=== PATIENT | male | born 1950 | race Caucasian/White ===

== ENCOUNTER 2016-10-21 09:27 | Day surgery (SDC) | payer MEDICARE, BC ==
[2016-10-14 08:25] VITALS: BMI 36.6
--- NOTE | 2016-10-20 14:49 | HP ---
DATE OF ADMISSION: 10/21/2016 Alin Junior is a 66-year-old patient seen with symptomatic left elbow olecranon bursitis with an obvious olecranon spur. After having treatment options discussed, he elected to proceed with surgical intervention, including olecranon bursectomy and excision of the symptomatic olecranon spur. Consent was obtained. His past medical history is benign prostatic hypertrophy, hypertension, gastroesophageal reflux disease. Past surgical history is bilateral carpal tunnel release. DAILY MEDICATIONS: 1. Aspirin. 2. Flomax. 3. Metoprolol. 4. Omeprazole. Allergies are none. SOCIAL HISTORY: Patient denies current tobacco use. Physical evaluation of the left elbow: He has an obvious large olecranon bursal swelling, obvious tenderness along the olecranon bursa as well as a palpable olecranon spur. His range of motion is near full. His distal neurovascular exam is intact. Ligaments about the elbow are stable. Radiographs of the left revealed an olecranon spur. IMPRESSION: Left elbow symptomatic olecranon bursitis with a symptomatic olecranon spur. PLAN: Left elbow olecranon bursectomy and excision of olecranon bony spur.
[2016-10-21] MEDS ORDERED: DEXAMETHASONE SOD PHOSPHATE 10 MG/ML 1 ML VIAL IV ONE (09:58)
[2016-10-21] MEDS ORDERED: LACTATED RINGERS 1,000 ML IV SCH (09:58)
[2016-10-21] MEDS ORDERED: HYDROmorphone 1 MG/ML 1 ML SYRINGE IVP PRN (09:58)
[2016-10-21] MEDS ORDERED: ONDANSETRON 4 MG/2 ML VIAL IVP ONE (09:58)
[2016-10-21] MEDS ORDERED: LIDOCAINE 1% 20 ML VIAL (10MG/ML) FOR IV START INTRADERMA ONE (10:08)
[2016-10-21] MEDS ORDERED: ceFAZolin 3 GM in SODIUM CHLORIDE 0.9% 100 ML IVPB STA (10:28)
[2016-10-21] MEDS ORDERED: LIDOCAINE 1% INJ 10MG/ML (20 ML MDV) ONE (11:04)
[2016-10-21] MEDS ORDERED: PROPOFOL 10 MG/ML 20 ML VIAL IV ONE (11:04)
[2016-10-21] MEDS ORDERED: ceFAZolin 1,000 MG VIAL ONE (11:04)
[2016-10-21] MEDS ORDERED: SUCCINYLCHOLINE CHLORIDE 100 MG/5 ML SYR IV ONE (11:04)
[2016-10-21] MEDS ORDERED: SODIUM CHLORIDE 0.9% 100 ML BAG ONE (11:04)
[2016-10-21] MEDS ORDERED: fentaNYL (PF) 50 MCG/ML 2 ML AMP ONE (11:04)
[2016-10-21] MEDS ORDERED: MIDAZOLAM 2 MG/2 ML VIAL ONE (11:04)
[2016-10-21] MEDS ORDERED: BUPIVACAINE (PF) 0.5% 30 ML VIAL SQ ONE ×2 (11:27→11:54)
--- NOTE | 2016-10-21 12:01 | P.OP ---
Date of Procedure: 10/21/16 Preoperative Diagnosis: 1. Left elbow olecranon bursitis 2. Left elbow olecranon spur Postoperative Diagnosis: Same Procedure(s) Performed: 1. Left elbow olecranon bursectomy 2. Left elbow excision of olecranon spur Anesthesia: ÁNGELA Surgeon: Patrice Noonan Hydrography Teacher #1: Nate Sinha Estimated Blood Loss (ml): 10 Pathology: none sent Condition: stable Disposition: PACU Indications for Procedure: 66-year-old patient seen with a symptomatic left elbow olecranon spur as well as recurrent persistent olecranon bursitis. After having options regarding treatment discussed, he elected to proceed with a left elbow olecranon bursectomy as well as excision of the spur. Operative Findings: See description of procedure Description of Procedure: Patient was taken to the operative suite. Patient underwent a general anesthetic by the department of anesthesia. A well-padded tourniquet was placed along the proximal left upper extremity. The left upper extremity was prepped and draped in the normal sterile orthopedic fashion. The patient had received preoperative IV antibiotics. The extremity was elevated and tourniquet insufflated to 250. I made an incision over the area of the olecranon bursa/olecranon tip. Dissection was taken down to the area of the thickened olecranon bursa. I now meticulously debrided all the abnormal looking olecranon bursal tissue performing a essentially complete olecranon bursectomy. I now identified the olecranon spur. I utilized an osteotome to excise this. I then rounded off the edges utilizing a rongeur. There was complete excision of the spur. There was complete excision of any abnormal appearing bursal tissue. The wound was irrigated with normal saline. We had good hemostasis. The subcutaneous soft tissues were approximated with 2-0 Vicryl. The skin was approximated with a running subcuticular 30 strata fix augmented with pernio Dermabond. The subcutaneous soft tissues were infiltrated with analgesic. The tourniquet was released with immediate capillary refill noted of the entire extremity. Sterile dressings were applied followed by loose web bone Masoud bandage. Patient was awakened, transferred to recovery stable condition. Nate HOWE assisted with the procedure.
[2016-10-21 12:21] VITALS: TEMP 97.9
[2016-10-21 13:34] VITALS: RESP 18
[2016-10-21] MEDS ORDERED: HYDROcodone/APAP 7.5-325MG 1 EACH TAB PO ONE (13:46)
[2016-10-21 14:08] VITALS: BP 138/87; PULSE 57
== END 2016-10-21 14:28 | disposition home or self-care (01) ==
LOC: OR 09:27
PROVIDERS: ATTEND Orthopaedic Surgery
DX: M70.22 Olecranon bursitis, left elbow (principal); M77.8 Other enthesopathies, not elsewhere classified; I10 Essential (primary) hypertension; G47.33 Obstructive sleep apnea (adult) (pediatric); N40.0 Benign prostatic hyperplasia without lower urinary tract symptoms; K21.9 Gastro-esophageal reflux disease without esophagitis; E66.01 Morbid (severe) obesity due to excess calories; Z68.36 Body mass index [BMI] 36.0-36.9, adult; Z79.82 Long term (current) use of aspirin; Z79.899 Other long term (current) drug therapy
CPT/HCPCS: 24105; J2250; J1100; J2405; J0690; J2001; J3010; J0330; J2704

== ENCOUNTER → 2019-10-25 | Outpatient (CLI) | payer MEDICARE, OTHER ==
--- NOTE | 2019-10-26 00:07 | CONS ---
CONSULTATION DATE OF SERVICE: 10/25/2019 A 69-year-old gentleman has been evaluated in Sleep Center for possible obstructive sleep apnea-hypopnea syndrome. HISTORY OF PRESENT ILLNESS/SLEEP WAKE EVALUATION: Patient's usual sleep schedule from 11:00 pm to 1:00 am until 730 to 7:45 am. FALLING ASLEEP: Usually no problems with falling asleep. No TV in bedroom. He prefers to sleep on stomach position. DURING SLEEP: He has loud snoring according to his , and witnessed episodes of stopped breathing during sleep. He wakes up from sleep 3 times with dry mouth and once with nocturia. No history of hypnagogical hallucinations, sleep paralysis or cataplexy. DURING THE DAY/SLEEP WAKE EVALUATION: During the day, the patient may take one nap in the afternoon. [place] Sleepiness Scale is 5. PAST MEDICAL HISTORY: Positive for hypertension, hyperlipidemia, diabetes mellitus, gout, BPH. PAST SURGICAL HISTORY: Bilateral surgery for carpal tunnel syndrome and surgery for the elbow, right side. MEDICATIONS: Lisinopril, metoprolol, lovastatin, metformin, allopurinol, glucosamine, Tamsulosin, Cholecalciferol, multivitamin and vitamin E. SOCIAL HISTORY: Positive for smoking in the past; quit 35 years ago. Alcohol consumption occasional. FAMILY HISTORY: Hypertension, hyperlipidemia, snoring. REVIEW OF SYSTEMS: Awakenings from sleep with nocturia and dry mouth. PHYSICAL EXAM: gentleman without distress. BP 127/79, HR 74, RR 16, height 5 feet 10 inches, weight 289.2 pounds, body mass index 40.8, temperature 98.2, oxygen saturation at room air 97%. Oropharynx extremely low position of soft palate. Mallampati 4. Restriction of nasal breathing. Wide neck 17-3/4 inches in circumference. NECK: Supple, no JVD. Thyroid is not palpable. LUNGS: Clear to percussion and to auscultation. Good air exchange. No wheezing or rhonchi. HEART: S1, S2 regular. No murmurs, gallops, or rubs. ABDOMEN: Soft and nontender. Bowel sounds are present. No organomegaly appreciated. EXTREMITIES: No clubbing or cyanosis. PRODUCTION CONTROL PLANNER: Awake, alert, and oriented X3. Cranial nerves 2 to 7 intact. There is no fasciculation or atrophy. noted. No focal deficits observed. IMPRESSION: 1. Loud snoring, witnessed episodes of stopped breathing during the sleep, extremely low position of soft palate, Mallampati IV, wide neck,awakenings from sleep with nocturia. Obstructive sleep apnea-hypopnea syndrome. 2. Obesity, BMI 40.83. 3. Hypertension. 4. Hyperlipidemia. 5. Diabetes mellitus. 6. Gout. 7. BPH. 8. Status post bilateral carpal tunnel syndrome. 9. Status post right elbow surgery. PLAN: 1. Polysomnography for evaluation of patient's breathing during sleep. 2. CPAP/BiPAP titration if sleep study confirms obstructive sleep apnea-hypopnea syndrome. 3. Preferable position during sleep on the side. 4. No driving if patient feels any sleepiness. 5. I will see patient for follow up visit to explain results of testing and following plan. Thank you very much for referring this patient for consultation. Sincerely, Aly Romero MD, PhD, FAASM Diplomat of [employer] Certified Flight Instructor of [facility] [place] MMODL / JULIN: [id number] /
== END | disposition home or self-care (01) ==
LOC: SLEEP 15:43
PROVIDERS: ATTEND Internal Medicine
DX: G47.33 Obstructive sleep apnea (adult) (pediatric) (principal); R35.1 Nocturia; E66.9 Obesity, unspecified; I10 Essential (primary) hypertension; E78.5 Hyperlipidemia, unspecified; E11.9 Type 2 diabetes mellitus without complications; M10.9 Gout, unspecified; N40.0 Benign prostatic hyperplasia without lower urinary tract symptoms; Z87.891 Personal history of nicotine dependence; Z98.890 Other specified postprocedural states; Z68.41 Body mass index [BMI] 40.0-44.9, adult; Z79.84 Long term (current) use of oral hypoglycemic drugs; Z79.899 Other long term (current) drug therapy
CPT/HCPCS: 99211

== ENCOUNTER 2020-01-17 09:12 | Emergency (ER) | payer OTHER, MEDICARE ==
[2020-01-17 09:17] VITALS: TEMP 98
[2020-01-17 10:23] LABS: Appearance,Urine Clear (Clear); Bilirubin,Urine Negative (Negative); Blood,Urine Moderate (Negative); Color,Urine Yellow; Glucose,Urine (UA) Negative (Negative); Ketones,Urine Negative (Negative); Leukocyte Esterase,Urine Negative (Negative); Mucus,Urine Rare /hpf; Nitrite,Urine Negative (Negative); Protein,Urine Negative (Negative); RBC,Urine 33 /hpf (0-5); Specific Gravity,Urine 1.018 (1.001-1.035); Urobilinogen,Urine <2.0 mg/dL (<2.0); WBC,Urine 1 /hpf (0-5)
--- NOTE | 2020-01-17 10:24 | ED ---
Male Urogenital HPI - General Chief complaint: Urogenital Stated complaint: unable to urinate Time Seen by Provider: 01/17/20 09:17 Source: patient, RN notes reviewed Mode of arrival: ambulatory Limitations: no limitations - History of Present Illness Initial comments: 69-year-old male present emergency from chief complaint of difficulty urinating. Patient states that he's had little to no urine output in last day or 2. Patient states only gets dribbling every 15 minutes. Patient called his PCP who increased his prostate medication. Patient denies any fevers chills no flank pain and nausea vomiting diarrhea constipation. Patient has never seen neurology in the past. - Related Data Home Medications Medication Instructions Recorded Confirmed Allopurinol [Zyloprim] 300 mg PO DIRECTED PRN 10/14/16 11/30/18 Cholecalciferol [Vitamin D3] 1 tab PO DAILY 10/14/16 11/30/18 Garlic 2 tab PO DAILY 10/14/16 11/30/18 Glucosamine Sulfate 1 tab PO DAILY 10/14/16 11/30/18 Multivitamins, Thera [Multivitamin] 1 tab PO DAILY 10/14/16 11/30/18 Lucan-3 Fatty Acids/Fish Oil [Fish 2 tab PO DAILY 10/14/16 11/30/18 Oil 1,000 mg Softgel] Omeprazole 20 mg PO DIRECTED PRN 10/14/16 11/30/18 Tamsulosin [Flomax] 0.4 mg PO DAILY 10/14/16 11/30/18 Ubidecarenone [Co Q-10] 1 tab PO DAILY 10/14/16 11/30/18 Metoprolol Tartrate [Lopressor] 100 mg PO DAILY 10/21/16 11/30/18 Aspirin [Adult Low Dose Aspirin EC] 81 mg PO 11/30/18 Lisinopril [Zestril] 10 mg PO DAILY 11/30/18 11/30/18 Lovastatin [Mevacor] 40 mg PO DAILY 11/30/18 11/30/18 metFORMIN HCL [Glucophage] 500 mg PO DAILY 11/30/18 11/30/18 Previous Rx's Medication Instructions Recorded HYDROcodone/APAP 7.5-325MG [[place] 1 tab PO Q6HR PRN #40 tab 10/21/16 7.5-325] Allergies Allergy/AdvReac Type Severity Reaction Status Date / Time atorvastatin AdvReac Unknown Verified 01/17/20 09:16 Review of Systems ROS Statement: Those systems with pertinent positive or pertinent negative responses have been documented in the HPI. ROS Other: All systems not noted in ROS Statement are negative. Past Medical History Past Medical History: Diabetes Mellitus, GERD/Reflux, Hyperlipidemia, Hypertension, Prostate Disorder Additional Past Medical History / Comment(s): HX OF GOUT History of Any Multi-Drug Resistant Organisms: None Reported Past Surgical History: Orthopedic Surgery Additional Past Surgical History / Comment(s): ELLEN CARPAL TUNNEL Past Anesthesia/Blood Transfusion Reactions: No Reported Reaction Past Psychological History: No Psychological Hx Reported Smoking Status: Former smoker Past Alcohol Use History: Occasional Past Drug Use History: None Reported - Past Family History Mother Family Medical History: No Reported History General Exam Limitations: no limitations General appearance: alert, in no apparent distress Head exam: Present: atraumatic, normocephalic, normal inspection Eye exam: Present: normal appearance, PERRL, EOMI. Absent: scleral icterus, conjunctival injection, periorbital swelling ENT exam: Present: normal exam, mucous membranes moist Respiratory exam: Present: normal lung sounds bilaterally. Absent: respiratory distress, wheezes, rales, rhonchi, stridor Cardiovascular Exam: Present: regular rate, normal rhythm, normal heart sounds. Absent: systolic murmur, diastolic murmur, rubs, gallop, clicks GI/Abdominal exam: Present: soft, distended, tenderness (Suprapubic), normal bowel sounds. Absent: guarding, rebound, rigid Course Vital Signs 01/17/20 09:14 Temperature 98.0 F Pulse Rate 65 Respiratory 18 Rate Blood Pressure 159/88 O2 Sat by Pulse 97 Oximetry - Reevaluation(s) Reevaluation #1: 01/17/20 10:24 Fully catheter was placed states he feels greatly improved, 1500ml urine output pending urinalysis at this time Medical Decision Making - Medical Decision Making Urinalysis reveals no evidence of urinary tract infection. Patient has urinary retention related to BPH. Patient will follow-up with urology, Griffith catheter will be left in place until follow-up. - Lab Data Lab Results 01/17/20 Range/Units 09:46 Urine Color Yellow Urine Appearance Clear (Clear) Urine pH 6.0 (5.0-8.0) Ur Specific Burns 1.018 (1.001-1.035) Urine Protein Negative (Negative) Urine Glucose (UA) Negative (Negative) Urine Ketones Negative (Negative) Urine Blood Moderate H (Negative) Urine Nitrite Negative (Negative) Urine Bilirubin Negative (Negative) Urine Urobilinogen <2.0 (<2.0) mg/dL Ur Leukocyte Esterase Negative (Negative) Urine RBC 33 H (0-5) /hpf Urine WBC 1 (0-5) /hpf Urine Mucus Rare H (None) /hpf Disposition Clinical Impression: Urinary retention Disposition: HOME SELF-CARE Condition: Stable Instructions (If sedation given, give patient instructions): Urinary Retention in Men (ED), Enlarged Prostate (BPH) (ED) Additional Instructions: Please return to the Emergency Department if symptoms worsen or any other concerns. Is patient prescribed a controlled substance at d/c from ED?: No Referrals: Sanchez Ansari DO [Primary Care Provider] - 1-2 days Aryan Garcia MD [STAFF PHYSICIAN] - 1-2 days Time of Disposition: 10:26
[2020-01-17 10:45] VITALS: BP 149/81; PULSE 70; RESP 16
== END 2020-01-17 10:44 | disposition home or self-care (01) ==
LOC: EC 09:12
DX: R33.8 Other retention of urine (principal); N40.1 Benign prostatic hyperplasia with lower urinary tract symptoms; R14.0 Abdominal distension (gaseous); R39.12 Poor urinary stream; R30.0 Dysuria; E11.9 Type 2 diabetes mellitus without complications; K21.9 Gastro-esophageal reflux disease without esophagitis; E78.5 Hyperlipidemia, unspecified; I10 Essential (primary) hypertension; M10.9 Gout, unspecified; Z87.891 Personal history of nicotine dependence; Z88.8 Allergy status to other drugs, medicaments and biological substances; Z79.82 Long term (current) use of aspirin; Z79.84 Long term (current) use of oral hypoglycemic drugs; Z79.899 Other long term (current) drug therapy
CPT/HCPCS: 51702; 51798; 81001; 99284

== ENCOUNTER → 2020-04-24 | Outpatient (CLI) | payer OTHER ==
--- NOTE | 2020-04-24 20:33 | SFUN ---
SLEEP CENTER FOLLOW UP NOTE DATE OF SERVICE: 04/24/2020 This patient is a 69-year-old gentleman who has been followed in the sleep center for treatment of obstructive sleep apnea/hypopnea syndrome. Recently the patient had a polysomnogram which showed that he has obstructive sleep apnea. Then he had CPAP titration. During titration, respiration normalized. Subsequently he received a CPAP unit. The patient is able to use his CPAP equipment most of the nights. I checked his CPAP unit. He used it for 81 nights, but he usually falls asleep pretty late and does not sleep many hours. Average usage is 3.3 hours per night. Pressure in the machine ranges from 5 to 15 cm of water. Average pressure is 9.6 cm of water. Leak is 17 L/minute, which is borderline. Apnea/hypopnea index is in the average range at only 1.6, which is absolutely normal. MEDICATIONS: Lisinopril, metoprolol, lovastatin, metformin, Allopurinol, glucosamine, tamsulosin, cholecalciferol, vitamins. PHYSICAL EXAMINATION: GENERAL: A pleasant patient in no distress. VITAL SIGNS: BP 145/90, HR 78, RR 18, weight 290, temperature 98.1, oxygen saturation at room air 98%. HEENT: PERRLA, EOMI. Evaluation of oropharynx showed tongue protrudes midline. Low position of soft palate. NECK: Supple. No JVD. Thyroid is not palpable. LUNGS: Clear to percussion and to auscultation. Good air exchange. No wheezing or rhonchi. HEART: S1, S2 regular. No murmurs, gallops or rubs. ABDOMEN: Obese. EXTREMITIES: No clubbing or cyanosis. BRAID PATTERN SETTER: Awake, alert, and oriented X3. Cranial nerves 2 to 7 intact. There is no fasciculation or atrophy. noted. No focal deficits observed. IMPRESSION: 1. Obstructive sleep apnea/hypopnea syndrome. The patient is benefitting from treatment. 2. Obesity. 3. Significant periodic limb movements per results of sleep studies. 4. Hypertension. 5. Hyperlipidemia. 6. Diabetes mellitus. 7. Gout. 8. Benign prostatic hypertrophy. 9. Status post bilateral carpal tunnel syndrome surgery. 10.Status post right elbow surgery. PLAN: 1. Patient will continue to use PAP equipment every night for the whole night. 2. Sleep hygiene with regular time in bed for at least 7-1/2 to 8 hours. 3. Precautions related to driving. No driving if feeling sleepiness. 4. I will maintain all necessary prescription for PAP supplies including mask, tube, filters. 5. Watching weight. 6. No driving if feeling sleepiness. 7. Follow-up visit in 6 months or earlier if patient has any problems. Thank you very much for allowing me to participate in the management of your patient. Sincerely, Aly Romero MD, PhD, FAASM Diplomat of [place] [employer] [place] [employer] of [facility] [place] MMODL / IJN: [id number] /
== END | disposition home or self-care (01) ==
LOC: SLEEP 13:16
PROVIDERS: ATTEND Internal Medicine
DX: G47.33 Obstructive sleep apnea (adult) (pediatric) (principal); E66.9 Obesity, unspecified; G47.61 Periodic limb movement disorder; I10 Essential (primary) hypertension; E78.5 Hyperlipidemia, unspecified; E11.9 Type 2 diabetes mellitus without complications; M10.9 Gout, unspecified; N40.0 Benign prostatic hyperplasia without lower urinary tract symptoms; Z98.890 Other specified postprocedural states; Z99.89 Dependence on other enabling machines and devices; Z79.84 Long term (current) use of oral hypoglycemic drugs; Z79.899 Other long term (current) drug therapy

== ENCOUNTER → 2023-10-24 | Outpatient (CLI) | payer MEDICARE ==
--- NOTE | 2023-10-24 16:59 | CA ---
Transthoracic Echo Report Name: Alin Junior Age: 73 Gender: M : 1950 Exam Date: 10/24/2023 14:13 Exam Location: [facility] Ht (in): 72 Wt (lb): 275 Ordering Physician: Jl Delaney MD Attending/Referring Phys: Lead Die Molder Conchita Bolanos RDCS Procedure CPT: Indications: chf Cardiac Hx: Technical Quality: Technically difficult study Contrast 1: Definity Total Dose (mL): 2 Contrast 2: Total Dose (mL): MEASUREMENTS (Male / Female) Normal Values 2D ECHO LV Diastolic Diameter PLAX 4.3 cm 4.2 - 5.9 / 3.9 - 5.3 cm LV Systolic Diameter PLAX 2.4 cm IVS Diastolic Thickness 1.8 cm 0.6 - 1.0 / 0.6 - 0.9 cm LVPW Diastolic Thickness 1.8 cm 0.6 - 1.0 / 0.6 - 0.9 cm LV Relative Wall Thickness 0.8 M-MODE Aortic Root Diameter MM 3.8 cm LA Systolic Diameter MM 6.0 cm LA Ao Ratio MM 1.6 DOPPLER AV Peak Velocity 190.5 cm/s AV Peak Gradient 14.5 mmHg AV Mean Velocity 151.5 cm/s AV Mean Gradient 9.8 mmHg AV Velocity Time Integral 38.5 cm LVOT Peak Velocity 153.2 cm/s LVOT Peak Gradient 9.4 mmHg LVOT Velocity Time Integral 26.3 cm Mitral E Point Velocity 114.9 cm/s Mitral A Point Velocity 31.7 cm/s Mitral E to A Ratio 3.6 MV Deceleration Time 192.5 ms MV E' Velocity 10.3 cm/s Mitral E to MV E' Ratio 11.2 FINDINGS Left Ventricle Moderately increased left ventricular wall thickness. Left ventricular cavity size normal. Normal left ventricular systolic function with no obvious regional wall motion abnormalities. Left ventricular ejection fraction is estimated at 55%. Right Ventricle Right ventricle not well visualized. Right Atrium Right atrium not well visualized. Left Atrium Normal left atrial size. Mitral Valve Structurally normal mitral valve. No mitral stenosis. Mild mitral regurgitation. Aortic Valve No aortic valve stenosis or regurgitation. Tricuspid Valve Tricuspid valve not well visualized. Mild tricuspid regurgitation. Pulmonic Valve Pulmonic valve not well visualized. Pericardium No pericardial effusion. Aorta Normal size aortic root and proximal ascending aorta. CONCLUSIONS Normal LV function Mild mitral regurgitation Previewed by: Dr. Sam Ray MD (Electronically Signed) Final Date: 24 October 2023 16:58
== END | disposition home or self-care (01) ==
LOC: RADECHMAIN 13:45
PROVIDERS: ATTEND Student in an Organized Health Care Education/Training Program
DX: I34.0 Nonrheumatic mitral (valve) insufficiency (principal); I50.20 Unspecified systolic (congestive) heart failure
CPT/HCPCS: C8929; Q9957; 93306

== ENCOUNTER 2024-05-24 18:31 | Inpatient (IN) | payer OTHER ==
[2024-05-24] MEDS: IOPAMIDOL-370 100ML BTL INJ ONE (18:10)
== END 2024-05-24 21:57 | disposition home or self-care (01) | DRG 243 ==
LOC: 5NMEDONC 18:31
PROVIDERS: ADMIT Internal Medicine Clinical Cardiac Electrophysiology; ATTEND Internal Medicine Clinical Cardiac Electrophysiology
PROC: 02H63JZ Insertion of Pacemaker Lead into Right Atrium, Percutaneous Approach (ICD-10-PCS; 2024-05-24)
PROC: 02H63JZ Insertion of Pacemaker Lead into Right Atrium, Percutaneous Approach (ICD-10-PCS; 2024-05-24)
PROC: 0JH606Z Insertion of Pacemaker, Dual Chamber into Chest Subcutaneous Tissue and Fascia, Open Approach (ICD-10-PCS; principal; 2024-05-24 16:28)
DX: I48.91 Unspecified atrial fibrillation (principal); I50.30 Unspecified diastolic (congestive) heart failure; I11.0 Hypertensive heart disease with heart failure; R00.0 Tachycardia, unspecified; Z68.35 Body mass index [BMI] 35.0-35.9, adult; I44.1 Atrioventricular block, second degree; I34.0 Nonrheumatic mitral (valve) insufficiency; I45.10 Unspecified right bundle-branch block; I27.20 Pulmonary hypertension, unspecified; E78.5 Hyperlipidemia, unspecified; E66.9 Obesity, unspecified; Z91.030 Bee allergy status; Z91.048 Other nonmedicinal substance allergy status; Z79.84 Long term (current) use of oral hypoglycemic drugs; Z87.891 Personal history of nicotine dependence

== ENCOUNTER 2024-09-21 06:22 | Day surgery (SDC) | payer OTHER ==
[2024-09-18 10:46] VITALS: BMI 33.9
[2024-09-21] MEDS: IV FLUID CONTINUATION 500 ML IV ONE (06:40)
[2024-09-21 06:46] VITALS: TEMP 98
[2024-09-21 07:13] LABS: Glucose,Whole Blood 172 mg/dL (70-110)
[2024-09-21] MEDS: SODIUM CHLORIDE 0.9% 500 ML 500 ML IV SCH (07:18)
[2024-09-21] MEDS ORDERED: PROPOFOL 10 MG/ML 20 ML VIAL IV ONE (07:29)
[2024-09-21 08:49] VITALS: RESP 14
--- NOTE | 2024-09-21 08:51 | P.EPPROC ---
- EP Procedure Note Date of Procedure: 09/21/24 Electrophysiology Procedure Note: PROCEDURE NAME: Synchronized cardioversion. Indication : Persistent Atrial flutter Consent: Risks and benefits discussed with patient and consent obtained. Anesthesia: provided by Anesthesia team using propofol The appropriate time-out procedure was performed including proper identification of the patient, physician, procedure, documentation, and there were no safety issues identified. The patient participated actively in this. After sedation was achieved, the patient was placed in the supine position and hands free patches were placed on his chest in the AP position. 1 shock was provided at, 150 Joules with successful resumption of normal sinus rhythm. This was confirmed on EKG. Repeat EKG confirms return to sinus rhythm. Complications: The patient tolerated the procedure well without complications. Jl Delaney MD, RPVI, FACC
[2024-09-21 09:12] VITALS: BP 115/72; PULSE 92
== END 2024-09-21 09:25 | disposition home or self-care (01) ==
LOC: OR 06:22
PROVIDERS: ATTEND Student in an Organized Health Care Education/Training Program
DX: I48.92 Unspecified atrial flutter (principal); I48.0 Paroxysmal atrial fibrillation; E11.9 Type 2 diabetes mellitus without complications; I11.0 Hypertensive heart disease with heart failure; I50.32 Chronic diastolic (congestive) heart failure; N40.0 Benign prostatic hyperplasia without lower urinary tract symptoms; E66.01 Morbid (severe) obesity due to excess calories; E78.2 Mixed hyperlipidemia; I27.20 Pulmonary hypertension, unspecified; G47.33 Obstructive sleep apnea (adult) (pediatric); Z87.891 Personal history of nicotine dependence; Z79.84 Long term (current) use of oral hypoglycemic drugs; Z79.899 Other long term (current) drug therapy; Z79.01 Long term (current) use of anticoagulants; Z86.711 Personal history of pulmonary embolism; Z95.0 Presence of cardiac pacemaker; Z88.8 Allergy status to other drugs, medicaments and biological substances; Z82.49 Family history of ischemic heart disease and other diseases of the circulatory system
CPT/HCPCS: 92960; J2704

== ENCOUNTER 2025-04-30 05:44 | Day surgery (SDC) | payer OTHER ==
[2025-04-30] MEDS ORDERED: HYDROmorphone 0.5 MG/0.5 ML SYRINGE IVP PRN (07:00)
[2025-04-30] MEDS ORDERED: ePHEDrine 50 MG/ML 1 ML VIAL ONE (07:21)
[2025-04-30] MEDS ORDERED: HEPARIN SODIUM,PORCINE 10,000 UNIT/ML 1 ML VIAL ONE (07:21)
[2025-04-30] MEDS ORDERED: fentaNYL (PF) 50 MCG/ML 2 ML AMP ONE (07:21)
[2025-04-30] MEDS ORDERED: PHENYLEPHRINE-0.9% NACL SYG 1,000 MCG/10 ML SYRINGE ONE (07:21)
[2025-04-30] MEDS ORDERED: PHENYLEPHRINE 10 MG/ML VIAL ONE (07:21)
[2025-04-30] MEDS ORDERED: WATER FOR INJECTION, STERILE 10 ML VIAL IV ONE (07:21)
[2025-04-30] MEDS ORDERED: SUCCINYLCHOLINE CHLORIDE 200 MG/10 ML VIAL IV ONE (07:21)
[2025-04-30] MEDS ORDERED: PROPOFOL 10 MG/ML 20 ML VIAL IV ONE (07:21)
[2025-04-30] MEDS ORDERED: LIDOCAINE 1% INJ 10MG/ML (20 ML MDV) ONE (07:21)
[2025-04-30] MEDS: IV FLUID CONTINUATION 950 ML IV ONE (07:26)
[2025-04-30 07:44] LABS: ALT 23 U/L (4-49); AST 32 U/L (17-59); African American GFR (CKD) 53 (>60 ml/min/1.73 sqM); Albumin 5.0 g/dL (3.5-5.0); Alkaline Phosphatase 44 U/L (38-126); Anion Gap 14 mmol/L; Blood Urea Nitrogen 25 mg/dL (9-20); Calcium 10.5 mg/dL (8.4-10.2); Carbon Dioxide 24 mmol/L (22-30); Chloride 101 mmol/L (98-107); Glucose 137 mg/dL (74-99); Non-African American GFR(CKD) 45 (>60 ml/min/1.73 sqM); Potassium 4.7 mmol/L (3.5-5.1); Sodium 139 mmol/L (137-145); Total Protein 8.2 g/dL (6.3-8.2)
[2025-04-30] MEDS: HEPARIN SODIUM,PORCINE 10,000 UNIT in SODIUM CHLORIDE 0.9% 1,000 ML IRRIGATION ONE (07:54)
[2025-04-30] MEDS: HEPARIN SOD,PORK IN 0.45% NACL 25,000 UNIT in 0.45% NACL 1 250ML.BAG IV ONE (07:54)
[2025-04-30] MEDS: HEPARIN SODIUM,PORCINE (1 ML) 2,500 UNIT in SODIUM CHLORIDE 0.9% 250 ML IRRIGATION ONE (07:54)
[2025-04-30] MEDS: LIDOCAINE 1% INJ 10MG/ML (20 ML MDV) SQ ONE (08:14)
[2025-04-30 10:15] LABS: T4, Free (Free Thyroxine) 1.03 ng/dL (0.78-2.19)
[2025-04-30] MEDS: IOPAMIDOL-300 100ML BTL INJ ONE (10:18)
[2025-04-30] MEDS ORDERED: PANTOPRAZOLE 40 MG TABLET PO PRN (10:46)
[2025-04-30] MEDS ORDERED: ACETAMINOPHEN TAB 325 MG TAB PO PRN (10:47)
--- NOTE | 2025-04-30 10:53 | P.HPCAR ---
History of Present Illness This is Dr. Quintana dictating an H/P on this patient The patient was interviewed and examined IMPRESSION / ASSESSMENT: Persistent atrial fibrillation first detected in May 2024 Failed treatment with oral amiodarone and electrical cardioversion History of advanced heart block status post dual-chamber pacemaker Elevated RVSP TSH 7.9 PLAN: Heparin dose was calculated Continue anticoagulation uninterrupted Proceed with A-fib ablation Check TSH once again in 3 months HPI Patient continues to complain of tiredness and fatigue No dizziness no syncope no chest pain or anginal No fever chills cough expectoration ROS: No fever chills or rigors, no cough, phlegm or expectoration, no nausea, vomiting or diarrhea, no hematuria, dysuria, no musculoskeletal complaints, no strokes or seizures, no skin lesions. EXAMINATION: 124/75 mmHg pulse rate in the 60s afebrile Breath sounds are reduced bilaterally Heart sounds are normal no murmur gallop or rub Breath sounds are clear Abdomen is soft nontender Central obesity, thick neck but no JVD No lower extremity edema REVIEW OF LABS, ECG & MEDICAL DATA Sodium 139 potassium 4.7 BUN 25 and creatinine 1.5 normal liver function tests Physical Exam Vitals: Vital Signs Temp Pulse Resp BP BP Pulse Ox 04/30/25 07:17 98.7 F 68 16 137/75 124/75 97 Intake and Output 04/29/25 04/30/25 04/30/25 22:59 06:59 14:59 Other: Weight 117 kg Past Medical History Past Medical History: Atrial Fibrillation, Diabetes Mellitus, GERD/Reflux, Hyperlipidemia, Hypertension, Prostate Disorder, Pulmonary Embolus (PE) Additional Past Medical History / Comment(s): HX OF GOUT, PE Lung Oct 2023, see dr quintana's h & p History of Any Multi-Drug Resistant Organisms: None Reported Past Surgical History: Orthopedic Surgery, Pacemaker Additional Past Surgical History / Comment(s): ELLEN CARPAL TUNNEL, PE removal, Past Anesthesia/Blood Transfusion Reactions: No Reported Reaction Type of Cardiac Device: Permanent Pacemaker Device Placement Date:: 05/2024 Smoking Status: Former smoker - Past Family History Mother Family Medical History: CVA/TIA, Diabetes Mellitus, Hypertension Physical Examination Vital Signs Temp Pulse Resp BP BP Pulse Ox 04/30/25 07:17 98.7 F 68 16 137/75 124/75 97 Intake and Output 04/29/25 04/30/25 04/30/25 22:59 06:59 14:59 Other: Weight 117 kg Results 04/30/25 06:56 Cardiac Enzymes 04/30/25 Range/Units 06:56 AST 32 (17-59) U/L Comprehensive Metabolic Panel 04/30/25 Range/Units 06:56 Sodium 139 (137-145) mmol/L Potassium 4.7 (3.5-5.1) mmol/L Chloride 101 (98-107) mmol/L Carbon Dioxide 24 (22-30) mmol/L BUN 25 H (9-20) mg/dL Creatinine 1.49 H (0.66-1.25) mg/dL Glucose 137 H (74-99) mg/dL Calcium 10.5 H (8.4-10.2) mg/dL AST 32 (17-59) U/L ALT 23 (4-49) U/L Alkaline Phosphatase 44 (38-126) U/L Total Protein 8.2 (6.3-8.2) g/dL Albumin 5.0 (3.5-5.0) g/dL Current Medications Generic Name Dose Route Start Last Admin Trade Name Freq PRN Reason Stop Dose Admin Hydromorphone HCl 0.5 mg 04/30/25 07:00 Hydromorphone 0.5 Mg/0.5 Ml Syringe IVP 04/30/25 23:00 Q5M PRN Phase 1 or 2 - Pain Control Sodium Chloride 1,000 mls @ 20 mls/hr 04/30/25 06:04 Saline 0.9% IV 05/30/25 06:03 .Q24H MATEO Lactated Ringer's 1,000 mls @ 20 mls/hr 04/30/25 06:04 Lactated Ringers IV 05/30/25 06:03 .Q24H MATEO Cefazolin Sodium 2 gm/ Sodium 50 mls @ 100 mls/hr 04/30/25 07:50 Chloride IVPB 04/30/25 08:19 ONCE STA Protocol Intake and Output 04/29/25 04/30/25 04/30/25 22:59 06:59 14:59 Other: Weight 117 kg Patient Weight 05/01/25 06:59 Weight 117 kg 04/30/25 06:56
--- NOTE | 2025-04-30 10:58 | P.EPPROC ---
- EP Procedure Note Electrophysiology Procedure Note: PROCEDURE A. fib ablation with antral-level PVI, left atrial septal ablation and left atrial roof ablation DIAGNOSIS Persistent atrial fibrillation, symptomatic, refractory to therapy with amiodarone RESULT No left atrial appendage mass seen on intracardiac echo, mildly thickened pericardium without any exudative material or effusion Successful A. fib ablation/pulmonary vein isolation of all veins using cryo- ablation Complete entrance block in all 4 veins confirmed No evidence for phrenic nerve injury Left atrial roof ablation Left atrial septal ablation Esophageal deflection YES Electrical cardioversion with a synchronized shock across the chest YES PROCEDURE DETAILS Written informed consent prior to procedure. Patient brought to the EP lab. General anesthesia given. Heparin administered. A city maintained above 300 seconds Both groins prepped and draped per protocol and venous sheaths placed. Esophagus intubated, circa catheter for temperature monitoring an endoscope for possible esophageal deflection. Phrenic nerve monitoring performed. Esophageal temperature monitoring performed. Esophageal deflection performed if circa catheter overlapping with the balloon or circa temperature less than 27.5°C Intracardiac echocardiography performed. Pericardium evaluated. Left atrial appendage evaluated. Left atrium evaluated along with pulmonary veins Transseptal catheterization performed under fluoroscopic guidance and intracardiac echo guidance Cryoablation sheath exchanged, balloon catheter along with achieve catheter placed in the left atrium. Pulmonary veins isolated in the following sequence: Left superior pulmonary vein followed by left inferior pulmonary vein, followed by right inferior pulmonary vein and lastly right superior pulmonary vein. Phrenic nerve stimulation along with capture thresholds within the SVC and right superior pulmonary vein to identify the phrenic nerve proximity to the cryo- balloon. Pulmonary veins isolated and confirmed with entrance and exit block. Phrenic nerve integrity confirmed at the end of the procedure Ablation of the left atrial roof performed with sequential lesions from the left superior to the right superior pulmonary veins. Ablation of the electrograms confirmed Ablation of the left atrial septum performed with cannulation of the superior branch of the right inferior or the inferior branch of the right superior vein to achieve ablation of the posterior septum of the left atrium. Ablation of electrograms confirmed Electrical cardioversion performed for persistence of atrial fibrillation despite successful ablation. Diagnostic catheters for the high right atrium, His bundle, coronary sinus placed. LA and RA pressures recorded LA pressure: 39/0/16 Diagnostic EP study with coronary sinus pacing and recording Baseline measurements: Ventricular paced rhythm Venous sheaths were removed and hemostasis assured with a closure device. Patient extubated and transferred to recovery Increase procedural time Difficult transseptal, very thick fossa ovalis, atrial lead had to be avoided bypassing the long wire on the septal aspect. The CS catheter had to be placed at the transseptal puncture site and then withdrawn as the sheath was slid into the left atrium. Transseptal catheterization took extra time. It was performed successfully without any acute complications Cannulation of all pulmonary veins was challenging on account of unusual cardiac rotation. However all veins were successfully cannulated, occluded, confirmed on venography and successfully isolated at an antral level During ablation multiple attempts had to be made to move the esophagus a safe distance of the from the pulmonary vein draining cryoablation, to avoid excessive thermal cooling of the esophagus This took extra time and effort to keep the esophagus a safe distance away from the cryoablation balloon. PROCEDURES PERFORMED Diagnostic EP study CS pacing and recording Left and right transseptal catheterization Catheter the mapping of the tachycardia Intracardiac echocardiography Pulmonary vein isolation with transseptal and comprehensive EPS, [id number] Extended procedure duration Left atrial roof line, [id number] Linear ablation, left atrium, +[id number] Electrical cardioversion with a synchronized shock across the chest [id number]
[2025-04-30 11:58] LABS: Glucose,Whole Blood 138 mg/dL (70-110)
[2025-04-30] MEDS: DEXAMETHASONE SOD PHOSPHATE 4 MG/ML 1 ML VIAL IV ONE (12:19)
[2025-04-30] MEDS: ONDANSETRON 4 MG/2 ML VIAL IVP ONE (12:19)
[2025-04-30] MEDS: LACTATED RINGERS 1,000 ML IV SCH (12:21)
[2025-04-30] MEDS: SODIUM CHLORIDE 0.9% 1,000 ML IV SCH (12:22)
[2025-04-30] MEDS: ACETAMINOPHEN IV (For NPO) 1,000 MG in EMPTY BAG 1 BAG IVPB ONE (16:38)
[2025-04-30] MEDS: APIXABAN 5 MG TAB PO SCH (17:47)
[2025-04-30 19:44] VITALS: BP 102/64; PULSE 89; RESP 17; TEMP 98.4
[2025-04-30] MEDS ORDERED: ATORVASTATIN 10 MG TAB PO SCH (21:00)
[2025-04-30] MEDS ORDERED: APIXABAN 5 MG TAB PO SCH (21:00)
[2025-05-01] MEDS ORDERED: hydroCHLOROthiazide 25 MG TAB PO SCH (07:30)
[2025-05-01] MEDS ORDERED: DAPAGLIFLOZIN PROPANEDIOL 5 MG TABLET PO SCH (09:00)
[2025-05-02] MEDS ORDERED: metFORMIN 500 MG TAB PO SCH (17:30)
== END 2025-04-30 21:21 | disposition home or self-care (01) ==
LOC: CATHEP 05:44 → 6NMEDSUR 10:34 → CATHEP 21:21
PROVIDERS: ATTEND Internal Medicine Clinical Cardiac Electrophysiology
DX: I48.19 Other persistent atrial fibrillation (principal); E11.9 Type 2 diabetes mellitus without complications; E78.5 Hyperlipidemia, unspecified; I10 Essential (primary) hypertension; M10.9 Gout, unspecified; Z86.711 Personal history of pulmonary embolism; Z87.891 Personal history of nicotine dependence; Z95.0 Presence of cardiac pacemaker; Z79.01 Long term (current) use of anticoagulants
CPT/HCPCS: 94760; 92960; 93656; 93657; 86900; 86901; 84439; 80053; 84443; 86850; C1894; C1769; C1760 ×3; C1730 ×2; C1759; C1733; C1766; J0330; J1644 ×3; J0690; J2003; J3010; J2704; Q9967; J2371 ×2